=== PATIENT | female | born 1965 | race Caucasian/White ===

== ENCOUNTER → 2016-12-01 | Outpatient (CLI) | payer OTHER ==
[~2016-12-01] MED LIST: BACLOFEN10 MG PO; CELEXA PO; CLARITIN10 M3 PO; DARVOCET-N 1001 TAB PO; GABAPENTIN800 MG PO; HYDROXYZINE HCL25 M1 PO; IBUPROFEN PO; KETOPROFEN PO; LEXAPRO20 MG PO; LINZESS145 MCG PO; MS CONTIN15 M1 PO; PAMELOR PO; PRAVACHOL20 MG PO; PRAVASTATIN SOD10 MG PO; PREMPRO 0.1 TAB 0.62 PO; PRILOSEC PO; PRILOSEC20 MG PO; PROZAC PO; REGLAN PO; SENNA8.6 M2 PO; VOLTAREN100 GM TOP; WELLBUTRIN XL150 M1 PO; ZANTAC150 M1 PO; ZANTAC150 MG PO; ZYRTEC PO
--- NOTE | ~2016-12-01 | MY29 ---
[facility] A Service of [facility] RADIOLOGY TEXT RESULTS PATIENT: MARCY PANDA LOCATION: [facility] : 65 UNIT #: [id number] AGE: [address]: Mary Ann Bennett MD SEX: F ORDER DR: [id number] [facility] [address] [place], [place] [address] [id number] O MR#: [id number] Acc #: [id number] NAME: MARCY PANDA : 1965 SEX: F STUDY DATE/TIME: 12/01/2016 9:37 UNIT: [facility] ROOM: STUDY DESCRIPTION: MY CARYL SCREENING W/ CAD BILAT Attending Physician: Mary Ann Bennett M.D. Ordering Physician: Mary Ann Bennett M.D. Primary Care Physician: Mary Ann Bennett M.D. MEDICAL IMAGING REPORT This report is preliminary unless electronic signature is present EXAM Digital screening mammogram 12/01/16 [facility]. HISTORY 51-year-old woman, no risk elevation. Annual screen. COMPARISON: Mammograms 08/16/09, 07/11/12, 02/19/15. FINDINGS Digital imaging of each breast was completed utilizing screening protocol. Review includes FDA approved CAD device. Breast parenchyma is partially fatty replaced with residual fibroglandular opacities present upper outer quadrants bilaterally. Parenchymal appearance is stable. I see no interval occurring mass. There are no suspicious microcalcifications and no architectural deformity. IMPRESSION Negative mammogram. Annual screening recommended. Patients over the age of 40 are entered into a reminder system with target due date for the next mammogram. A result letter will also be sent to the patient. BIRADS: 1 - negative Dictated by... Zoran Espinal M.D. THIS IS AN ELECTRONICALLY VERIFIED REPORT [facility] A Service of [facility] & [facility] RADIOLOGY TEXT RESULTS PATIENT: MARCY PANDA LOCATION: [facility] : 65 UNIT #: [id number] AGE: [address]: Mary Ann Bennett MD SEX: F ORDER DR: Zoran Espinal M.D. at 12/01/2016 3:01 PM FABRIZIO/luba TD: 12/01/2016 13:03 JOB #: [id number] MEDICAL IMAGING REPORT Page 1 of 1 COPY
== END | disposition home or self-care (01) ==
LOC: CWCC 09:00
DX: Z12.31 Encounter for screening mammogram for malignant neoplasm of breast (principal)
CPT/HCPCS: G0202